=== PATIENT | male | born 1995 | race Two or more races ===

== ENCOUNTER → 2020-06-28 13:41 | Outpatient (BNVA) | payer OTHER, SELFPAY | PROVIDERS: Visit Provider Physician Assistant Medical | DX: S97.111A Crushing injury of right great toe, initial encounter (principal); S90.411A Abrasion, right great toe, initial encounter; W20.8XXA Other cause of strike by thrown, projected or falling object, initial encounter | CPT/HCPCS: 11740; 73630; 99203 ==

== ENCOUNTER → 2020-07-03 13:25 | Outpatient (BNVA) | payer OTHER, SELFPAY | PROVIDERS: Visit Provider Physician Assistant | DX: S90.411A Abrasion, right great toe, initial encounter (principal); S97.111A Crushing injury of right great toe, initial encounter; X58.XXXA Exposure to other specified factors, initial encounter | CPT/HCPCS: 99213 ==